=== PATIENT | male | born 1985 | race Caucasian/White ===

== ENCOUNTER 2017-05-10 20:23 | Emergency (ER) | payer OTHER ==
--- NOTE | 2017-05-10 21:58 | ED ---
General Adult HPI - General Chief complaint: Skin/Abscess/Foreign Body Stated complaint: Hemorrhorid Time Seen by Provider: 05/10/17 21:14 Source: patient, family, RN notes reviewed Mode of arrival: ambulatory Limitations: no limitations - History of Present Illness Initial comments: chief complaint and history of present illness this is a 31-year-old male here with complaints of a hemorrhoid. - Related Data Home Medications Medication Instructions Recorded Confirmed Ranitidine HCl [Zantac] 150 mg PO BID PRN 05/10/17 05/10/17 Allergies Allergy/AdvReac Type Severity Reaction Status Date / Time Penicillins Allergy Anaphylaxis Verified 05/10/17 20:52 Review of Systems ROS Statement: Those systems with pertinent positive or pertinent negative responses have been documented in the HPI. review of systems no other complaints other than hemorrhoid. No bleeding minimal discomfort. But when he wipes she feels there. Size of a pea. Past medical problems , ulcers, no surgeries. Family history noncontributory smokes daily occasional alcohol use and marijuana. He reports ALLERGIES to penicillin. ROS Other: All systems not noted in ROS Statement are negative. Past Medical History Past Medical History: No Reported History Additional Past Medical History / Comment(s): ulcers History of Any Multi-Drug Resistant Organisms: None Reported Past Surgical History: No Surgical Hx Reported Past Psychological History: Anxiety, Bipolar, Depression, Schizoaffective Disorder, Schizophrenia Smoking Status: Current every day smoker Past Alcohol Use History: Occasional Past Drug Use History: Marijuana General Exam - General Exam Comments Initial Comments: pertinent physical exam Vital signs temp 98.6 pulse 15 respiratory rate 18 pulse ox 96% room air blood pressure 135/78 Rectal examination finds a pea-sized hemorrhoid, external nonbleeding mildly tender. Rectal exam otherwise negative. No other issues. Limitations: no limitations Course Vital Signs 05/10/17 20:30 Temperature 98.6 F Pulse Rate 105 H Respiratory 18 Rate Blood Pressure 135/78 O2 Sat by Pulse 96 Oximetry Medical Decision Making - Medical Decision Making medical decision making; we discussed hemorrhoids and topical application of witch jeovanny or hemorrhoidal cream. He's been advised to follow-up with his family doctor. I will give him the name of the on-call general surgeon so that if he wants to have this examined he can follow-up. Disposition Clinical Impression: External hemorrhoid Disposition: HOME SELF-CARE Condition: Fair Instructions: Hemorrhoids (ED), Astringent (On the skin) Additional Instructions: Use Tucks, poor preparation H. Follow-up family physician or on-call general surgeon as needed Referrals: None,Stated [Primary Care Provider] - 1-2 days Kathrine Alvarado MD [STAFF PHYSICIAN] - 1-2 days Time of Disposition: 21:58
[2017-05-10 23:37] VITALS: BP 134/79; PULSE 79; RESP 18; TEMP 98
== END 2017-05-10 22:27 | disposition home or self-care (01) ==
LOC: EC 20:23
DX: K64.4 Residual hemorrhoidal skin tags (principal); F17.200 Nicotine dependence, unspecified, uncomplicated; Z88.0 Allergy status to penicillin
CPT/HCPCS: 99282